=== PATIENT | male | born 1965 | race African-American/Black ===

== ENCOUNTER 2024-12-15 14:43 | Inpatient (IN) | payer OTHER ==
[~2024-12-15] VITALS: Ht 177.8 cm; Wt 123.1 kg
[2024-12-15] MEDS ORDERED: ONDANSETRON HCL 4 MG/2 ML VIAL ONE (14:56)
[2024-12-15 15:05] LABS: BASOPHILS % (AUTO) 0.4 % (0.0-2.0); EOSINOPHILS % (AUTO) 4.6 % (1.0-6.0); HEMATOCRIT 49.4 % (41-53); HEMOGLOBIN 16.5 g/dL (13.5-17.5); LYMPHOCYTES # (AUTO) 2.4 K/uL (1.0-4.8); LYMPHOCYTES % (AUTO) 31.7 % (22.0-44.0); MEAN CORPUSCULAR HGB CONC 33.4 G/dL (31.0-37.0); MEAN CORPUSCULAR VOLUME 90 fL (80-100); MONOCYTES # (AUTO) 0.8 K/uL (0.1-1.0); MONOCYTES % (AUTO) 11.3 % (2.0-9.0); NEUTROPHILS # (AUTO) 3.9 K/uL (1.8-7.7); PLATELET COUNT (AUTO) 230 K/uL (150-450); RED BLOOD CELL COUNT(AUTO) 5.51 MIL/uL (4.50-5.90); RED CELL DISTRIBUTION WIDTH 14.5 % (11.5-14.5); WHITE BLOOD COUNT (AUTO) 7.5 K/uL (4.5-11.0)
[2024-12-15 15:14] LABS: ANION GAP 10 mmol/L (8-16); CALCIUM, TOTAL 8.9 mg/dL (8.8-10.5); CARBON DIOXIDE 27 mmol/L (22-29); CHLORIDE 106 mmol/L (98-107); CREATININE 0.83 mg/dL (0.60-1.30); GLOMERULAR FILTR. RATE CALC > 60 mL/min (>60); GLUCOSE,RANDOM 121 mg/dL (70-110); POTASSIUM 3.6 mmol/L (3.5-5.1); SODIUM SERUM 143 mmol/L (136-145); UREA NITROGEN, BLOOD 10 mg/dL (7-18)
[2024-12-15 15:17] LABS: PROTHROMBIN TIME 10.3 SEC (9.4-11.6)
[2024-12-15 15:23] LABS: TROPONIN I-HIGH SENSITIVITY 23 ng/L (<76)
[2024-12-15 15:24] LABS: ALANINE AMINOTRANSFERASE 26 U/L (12-78); ALBUMIN 3.5 g/dL (3.4-5.0); ALKALINE PHOSPHATASE 98 U/L (46-116); ASPARTATE AMINOTRANSFERASE 22 U/L (15-37); BILIRUBIN,TOTAL 0.8 mg/dL (0.1-1.0); CHOL/HDL RATIO 4.3 (4.2-7.3); CHOLESTEROL 154 mg/dL (131-200); HDL CHOLESTEROL 36 mg/dL (40-60); LDL CHOL (CALC.) 88 mg/dL (0-130); TOTAL PROTEIN, SERUM 7.6 g/dL (6.4-8.2); TRIGLYCERIDES 152 mg/dL (15-150)
[2024-12-15] MEDS: ONDANSETRON HCL 4 MG/2 ML VIAL IVP ONE (15:29)
[2024-12-15] MEDS ORDERED: SODIUM CHLORIDE 0.9% 100 ML ONE (15:30)
[2024-12-15] MEDS ORDERED: 0.9% SODIUM CHLORIDE 10 ML SYRINGE IVP ONE (15:30)
[2024-12-15] MEDS ORDERED: IOHEXOL 350 MG/ML 100 ML VIAL ONE (15:30)
[2024-12-15 15:31] LABS: APPEARANCE,URINE CLEAR (CLEAR); BILIRUBIN,URINE NEGATIVE (NEGATIVE); COLOR,URINE COLORLESS (YELLOW); GLUCOSE, URINE (UA) 300-500 mg/dL (NEGATIVE); KETONES,URINE NEGATIVE (NEGATIVE); LEUKOCYTE ESTERASE ,URINE NEGATIVE (NEGATIVE); NITRATE,URINE NEGATIVE (NEGATIVE); OCCULT BLOOD,URINE SMALL (NEGATIVE); PH,URINE 7.5 (5.0-8.0); PH,URINE DRUG SCREEN 7.5 (5.0-8.0); PROTEIN,URINE 300-600,SEE CONFIRM mg/dL (NEGATIVE); SPECIFIC GRAVITIY, URINE 1.008 (1.003-1.030); UROBILINOGEN,URINE <=1.0 mg/dL (<=1.0)
[2024-12-15] MEDS ORDERED: RIVA20TA PO (15:34)
[2024-12-15] MEDS ORDERED: FURO80TA3 PO (15:34)
[2024-12-15 15:36] LABS: ALCOHOL, URINE DRUG SCREEN NEGATIVE (NEGATIVE); AMPHET/METH SCREEN,URINE NEGATIVE (NEGATIVE); BARBITURATE SCREEN, URINE NEGATIVE (NEGATIVE); BENZODIAZEPINES SCREEN,URINE NEGATIVE (NEGATIVE); CANNABINOID SCREEN,URINE NEGATIVE (NEGATIVE); COCAINE SCREEN,URINE NEGATIVE (NEGATIVE); METHADONE SCREEN, URINE NEGATIVE (NEGATIVE); OPIATE SCREEN,URINE NEGATIVE (NEGATIVE); PHENCYCLIDINE SCREEN,URINE NEGATIVE (NEGATIVE)
[2024-12-15] MEDS ORDERED: ACETAMINOPHEN 325 MG TABLET PO PRN (15:45)
[2024-12-15] MEDS ORDERED: BISACODYL 10 MG RECTAL RECTAL SUPPOSITORY PR PRN (15:45)
[2024-12-15] MEDS ORDERED: HydrALAZINE HCL 20 MG/ML VIAL IVP PRN (15:45)
[2024-12-15 15:56] LABS: SULFOSALICYLIC ACID,URINE 2+ (Negative)
[2024-12-15 15:58] LABS: BACTERIA,URINE Rare /HPF (None Seen); SQUAMOUS EPITHELIAL CELL,UR Rare /LPF (None Seen); WBC,URINE 0-2 /HPF (0-5)
[2024-12-15] MEDS: HEPARIN SODIUM,PORCINE 5,000 UNITS/ML VIAL SQ SCH (16:46)
[2024-12-15] MEDS: ASPIRIN 300 MG RECTAL SUPPOSITORY PR ONE (16:46)
[2024-12-16] VITALS: BP 130/80; PULSE 78; RESP 18; TEMP 98; O2SAT 96
[2024-12-16 03:58] LABS: TROPONIN I-HIGH SENSITIVITY 28 ng/L (<76)
[2024-12-16 08:00] VITALS: BP 167/104; PULSE 85; RESP 18; TEMP 98.6; O2SAT 95
[2024-12-16] MEDS: PANTOPRAZOLE SODIUM 40 MG/VIAL IVP SCH (09:02)
[2024-12-16] MEDS ORDERED: PERMETHRIN 1% 60 ML LOTION TP ONE (10:00)
[2024-12-16] MEDS: ATORVASTATIN CALCIUM 40 MG TABLET PO SCH (11:39)
[2024-12-16] MEDS: ASPIRIN 81 MG CHEWABLE TABLET PO SCH (11:39)
[2024-12-16 12:00] VITALS: BP 159/103; PULSE 75; RESP 18; TEMP 97.5; O2SAT 96
[2024-12-16] MEDS ORDERED: APIXABAN 5 MG TABLET PO SCH (21:00)
== END 2024-12-16 16:25 | disposition short-term general hospital (02) | DRG 92 ==
LOC: EMS 14:44 → EDH 15:32 → 5S 12-16 01:44
PROVIDERS: ADMIT Internal Medicine; ATTEND Internal Medicine
DX: R29.810 Facial weakness (principal); G81.94 Hemiplegia, unspecified affecting left nondominant side; R13.10 Dysphagia, unspecified; R47.81 Slurred speech; E66.01 Morbid (severe) obesity due to excess calories; I16.0 Hypertensive urgency; I48.91 Unspecified atrial fibrillation; F17.200 Nicotine dependence, unspecified, uncomplicated; I11.0 Hypertensive heart disease with heart failure; I50.9 Heart failure, unspecified; G47.33 Obstructive sleep apnea (adult) (pediatric); Z79.899 Other long term (current) drug therapy; Z71.6 Tobacco abuse counseling; Z79.01 Long term (current) use of anticoagulants; Z86.718 Personal history of other venous thrombosis and embolism; Z95.0 Presence of cardiac pacemaker; Z68.38 Body mass index [BMI] 38.0-38.9, adult
CPT/HCPCS: 70496; 70498; 71045; 80053; 80061; 80307; 81001; 81002; 82948; 83036; 84484; 85025; 85610; 85730; 86850; 86900; 86901; 92610; 93005; 93306; 97116; 97163; 97167; 97530; 97535; 99291; G0378; J1644; J2405; J2470; J7050; 36415-L1; 36415-TC; 70450; 70450-TC